=== PATIENT | female | born 1945 | race Caucasian/White ===

== ENCOUNTER 2016-06-30 16:52 | Inpatient (IN) | payer OTHER ==
[~2016-06-30] VITALS: Ht 162.6 cm; Wt 73.0 kg
[2016-06-30] MEDS ORDERED: OPTIRAY 350 100 ML VIAL HMH IV ONE (17:45)
[2016-06-30 18:28] VITALS: BP_SYST 155; BP_SYST 160; RESP 18; TEMP 98.8
[2016-06-30 18:30] VITALS: Ht 162.6 cm; Wt 73.0 kg
[2016-06-30] MEDS ORDERED: PHARMACY TO DOSE LEVAQUIN IV SCH (19:40)
[2016-06-30] MEDS ORDERED: SALINE FLUSH 10 ML FLUSH PRN (19:40)
[2016-06-30] MEDS ORDERED: DEXTROSE 50% SYRINGE 50 ML IV PRN (19:40)
[2016-06-30] MEDS ORDERED: ONDANSETRON 4 MG TAB PO PRN (19:40)
[2016-06-30] MEDS: DUONEB INH SCH ×2 (19:40→22:26)
[2016-06-30] MEDS ORDERED: GLUCAGON 1 MG VIAL IM PRN (19:40)
[2016-06-30] MEDS ORDERED: SODIUM CHLORIDE 0.9% 1,000 ML IV SCH (22:10)
[2016-06-30] MEDS: SALINE FLUSH 10 ML FLUSH SCH (22:19)
[2016-06-30 22:20] VITALS: RESP 18
[2016-06-30] MEDS: LEVOFLOXACIN 750 MG/150 ML 150 ML IV SCH (22:20)
[2016-06-30] MEDS: MAG OXIDE 400 MG TAB PO SCH (22:20)
[2016-06-30] MEDS: LACTULOSE SOLN 20GM/30ML UDC PO SCH (22:20)
[2016-06-30] MEDS: CITALOPRAM 20 MG TAB PO SCH (22:21)
[2016-07-01] VITALS: BP_SYST 130; RESP 20; TEMP 98.4
[2016-07-01] MEDS ORDERED: ZOLPIDEM 5 MG TAB PO PRN (00:15)
[2016-07-01] MEDS: MAGNESIUM SULF 1 GM/100 ML 100 ML IV SCH ×2 (00:39→02:10)
[2016-07-01 04:07] VITALS: BP_SYST 119; RESP 20; TEMP 98
[2016-07-01] MEDS: SODIUM CHLORIDE 0.9% FLUSH BAG 500 ML IV SCH (05:55)
[2016-07-01] MEDS: PANTOPRAZOLE 40 MG TAB PO SCH (06:19)
[2016-07-01] MEDS: DUONEB INH SCH ×4 (06:32→23:00)
[2016-07-01 07:09] VITALS: BP_SYST 155; TEMP 98.2
[2016-07-01] MEDS: LEVOFLOXACIN 750 MG/150 ML 150 ML IV SCH (09:54)
[2016-07-01] MEDS: LACTULOSE SOLN 20GM/30ML UDC PO SCH ×2 (09:55→20:38)
[2016-07-01] MEDS: MAG OXIDE 400 MG TAB PO SCH ×2 (09:55→20:39)
[2016-07-01] MEDS: NIFEdipine XL 30 MG TAB PO SCH (09:55)
[2016-07-01] MEDS: SALINE FLUSH 10 ML FLUSH SCH ×2 (09:55→20:40)
[2016-07-01] MEDS: DOCUSATE SOD 100 MG CAP PO SCH (09:55)
[2016-07-01 10:47] VITALS: BP_SYST 111; RESP 18; TEMP 98.5
[2016-07-01] MEDS: NEB-BROVANA 15 MCG/2 ML INH SCH ×2 (12:15→18:47)
[2016-07-01] MEDS: PREDNISONE 20 MG TAB PO SCH (12:40)
[2016-07-01 15:40] VITALS: BP_SYST 119; RESP 18; TEMP 98.7
[2016-07-01 19:07] VITALS: BP_SYST 140; RESP 16; TEMP 97.5
[2016-07-01] MEDS: CITALOPRAM 20 MG TAB PO SCH (20:39)
[2016-07-01] MEDS: ENOXAPARIN 40 MG/0.4 ML SYR SUBQ SCH (20:40)
[2016-07-01] MEDS ORDERED: MISSING DOSE XX ONE (22:05)
[2016-07-01] MEDS: TEMAZEPAM 7.5 MG CAP PO PRN (22:27)
[2016-07-02 00:11] VITALS: BP_SYST 119; RESP 20; TEMP 97.1
[2016-07-02] MEDS: SODIUM CHLORIDE 0.9% FLUSH BAG 500 ML IV SCH (06:03)
[2016-07-02] MEDS: PANTOPRAZOLE 40 MG TAB PO SCH (06:03)
[2016-07-02] MEDS: NEB-BROVANA 15 MCG/2 ML INH SCH ×2 (07:00→18:24)
[2016-07-02] MEDS: DUONEB INH SCH ×5 (07:00→22:42)
[2016-07-02 07:31] VITALS: BP_SYST 136; RESP 24; TEMP 98.2
[2016-07-02] MEDS: LEVOFLOXACIN 750 MG/150 ML 150 ML IV SCH (09:12)
[2016-07-02] MEDS: MAG OXIDE 400 MG TAB PO SCH ×2 (09:13→20:43)
[2016-07-02] MEDS: PREDNISONE 20 MG TAB PO SCH (09:13)
[2016-07-02] MEDS: SALINE FLUSH 10 ML FLUSH SCH ×2 (09:13→19:31)
[2016-07-02] MEDS: NIFEdipine XL 30 MG TAB PO SCH (09:13)
[2016-07-02] MEDS: DOCUSATE SOD 100 MG CAP PO SCH (09:13)
[2016-07-02] MEDS: LACTULOSE SOLN 20GM/30ML UDC PO SCH ×2 (09:14→20:43)
[2016-07-02 10:39] VITALS: BP_SYST 120; RESP 20; TEMP 98.7
[2016-07-02] MEDS: MAGNESIUM SULF 1 GM/100 ML 100 ML IV SCH ×2 (10:53→12:07)
[2016-07-02] MEDS: MORPHINE ER 15 MG TAB PO SCH (15:04)
[2016-07-02 15:31] VITALS: BP_SYST 138; RESP 20; TEMP 97.6
[2016-07-02] MEDS: ENOXAPARIN 40 MG/0.4 ML SYR SUBQ SCH (19:31)
[2016-07-02 19:47] VITALS: BP_SYST 143; RESP 20; TEMP 98.2
[2016-07-02] MEDS: CITALOPRAM 20 MG TAB PO SCH (20:42)
[2016-07-02] MEDS: TEMAZEPAM 7.5 MG CAP PO PRN (22:18)
[2016-07-02] MEDS ORDERED: MISSING DOSE XX ONE (22:20)
[2016-07-02 23:26] VITALS: BP_SYST 117; RESP 20; TEMP 98.2
[2016-07-03 03:17] VITALS: BP_SYST 139; RESP 20; TEMP 98
[2016-07-03] MEDS: MORPHINE ER 15 MG TAB PO SCH ×3 (03:21→21:47)
[2016-07-03] MEDS: SODIUM CHLORIDE 0.9% FLUSH BAG 500 ML IV SCH (05:16)
[2016-07-03] MEDS: PANTOPRAZOLE 40 MG TAB PO SCH (06:40)
[2016-07-03 07:11] VITALS: BP_SYST 125; RESP 24; TEMP 97.9
[2016-07-03] MEDS: NEB-BROVANA 15 MCG/2 ML INH SCH ×2 (07:32→19:07)
[2016-07-03] MEDS: DUONEB INH SCH ×4 (07:32→22:43)
[2016-07-03] MEDS: SALINE FLUSH 10 ML FLUSH SCH ×2 (08:58→20:13)
[2016-07-03] MEDS: LEVOFLOXACIN 750 MG/150 ML 150 ML IV SCH (08:59)
[2016-07-03] MEDS: DOCUSATE SOD 100 MG CAP PO SCH (08:59)
[2016-07-03] MEDS: MAG OXIDE 400 MG TAB PO SCH ×2 (08:59→21:45)
[2016-07-03] MEDS: PREDNISONE 20 MG TAB PO SCH (08:59)
[2016-07-03] MEDS: NIFEdipine XL 30 MG TAB PO SCH (09:00)
[2016-07-03] MEDS: LACTULOSE SOLN 20GM/30ML UDC PO SCH ×2 (09:00→21:46)
[2016-07-03 11:05] VITALS: BP_SYST 129; RESP 22; TEMP 97.3
[2016-07-03 14:57] VITALS: BP_SYST 114; RESP 20; TEMP 98.3
[2016-07-03] MEDS ORDERED: MISSING DOSE XX ONE (16:35)
[2016-07-03] MEDS: GUAIFENESIN ER 600 MG TABCR PO SCH ×2 (16:47→21:45)
[2016-07-03] MEDS: NEB-BUDESONIDE 0.5 MG INH SCH (19:07)
[2016-07-03 19:18] VITALS: BP_SYST 141; RESP 20; TEMP 97.9
[2016-07-03] MEDS: ENOXAPARIN 40 MG/0.4 ML SYR SUBQ SCH (20:14)
[2016-07-03] MEDS: CITALOPRAM 20 MG TAB PO SCH (21:45)
[2016-07-03 23:38] VITALS: BP_SYST 140; RESP 20; TEMP 98.5
[2016-07-04 04:46] VITALS: BP_SYST 123; RESP 20; TEMP 98.2
[2016-07-04] MEDS: SODIUM CHLORIDE 0.9% FLUSH BAG 500 ML IV SCH (05:41)
[2016-07-04] MEDS: DUONEB INH SCH ×2 (06:20→14:13)
[2016-07-04] MEDS: NEB-BUDESONIDE 0.5 MG INH SCH (06:20)
[2016-07-04] MEDS: NEB-BROVANA 15 MCG/2 ML INH SCH (06:20)
[2016-07-04] MEDS: PANTOPRAZOLE 40 MG TAB PO SCH (06:27)
[2016-07-04 07:38] VITALS: BP_SYST 117; RESP 18; TEMP 98.2
[2016-07-04] MEDS: SALINE FLUSH 10 ML FLUSH SCH (08:02)
[2016-07-04] MEDS: LEVOFLOXACIN 750 MG/150 ML 150 ML IV SCH (08:24)
[2016-07-04] MEDS: MORPHINE ER 15 MG TAB PO SCH (08:25)
[2016-07-04] MEDS: MAG OXIDE 400 MG TAB PO SCH (08:26)
[2016-07-04] MEDS: GUAIFENESIN ER 600 MG TABCR PO SCH (08:26)
[2016-07-04] MEDS: LACTULOSE SOLN 20GM/30ML UDC PO SCH (08:27)
[2016-07-04] MEDS: PREDNISONE 20 MG TAB PO SCH (08:27)
[2016-07-04] MEDS: DOCUSATE SOD 100 MG CAP PO SCH (08:27)
[2016-07-04] MEDS: NIFEdipine XL 30 MG TAB PO SCH (08:27)
[2016-07-04 11:36] VITALS: BP_SYST 112; RESP 18; TEMP 98
[2016-07-04 15:06] VITALS: BP_SYST 144; RESP 20; TEMP 98
[2016-07-04 16:16] VITALS: BP_SYST 144; RESP 20; TEMP 98
[2016-07-05] MEDS ORDERED: SODIUM CHLORIDE 0.9% FLUSH BAG 500 ML IV SCH (06:00)
== END 2016-07-04 16:52 | disposition home health service (06) | DRG 189 ==
LOC: ENRESERVDT → ENRESERVTM → 4NT 17:44 → OBSVTOIN 07-01 12:14 → ENPENDDIS 07-01 12:14
PROVIDERS: ADMIT Internal Medicine; ATTEND Internal Medicine
DX: J96.21 Acute and chronic respiratory failure with hypoxia (principal); C79.9 Secondary malignant neoplasm of unspecified site; C56.9 Malignant neoplasm of unspecified ovary; J44.1 Chronic obstructive pulmonary disease with (acute) exacerbation; I10 Essential (primary) hypertension; E11.9 Type 2 diabetes mellitus without complications; G47.00 Insomnia, unspecified; E83.42 Hypomagnesemia; Z66 Do not resuscitate
CPT/HCPCS: 36600; 71260; 80053; 82803; 83735; 83880; 85025; 85379; 87040; 87071; 87278; 93970; 94640; 94664; 94799; 99219; 99232